=== PATIENT | male | born 1985 | race American Indian/Alaskan Native ===

== ENCOUNTER 2018-09-20 20:59 | Emergency (ER) | payer SELFPAY ==
[2018-09-20] MEDS ORDERED: NA CHLORIDE 0.9% 1,000 ML ONE (21:31)
[2018-09-20 21:48] LABS: Absolute Monocytes 1.2 K/uL (0.1-1.3); Absolute Neutrophil 5.9 K/uL (1.8-8.0); Basophils % 0.8 % (0-1.3); Eosinophils % 1.3 % (0-4.4); Hematocrit 50.5 % (39.6-49.0); Lymphocytes % 35.1 % (15.3-44.8); MCH 29.4 pg (27.0-35.0); MCV 86.3 fL (80-100); MPV 7.6 fL (7.6-11.3); Monocytes % 10.7 % (3.3-12.3); RBC Red Blood Cell Count 5.85 M/uL (4.33-5.43)
[2018-09-20 21:56] LABS: Protime INR 1.1
[2018-09-20 21:58] LABS: Barbiturates NEGATIVE (NEGATIVE); Benzodiazepines NEGATIVE (NEGATIVE); Cocaine NEGATIVE (NEGATIVE); METHAMPHETAM NEGATIVE (NEGATIVE); Methadone NEGATIVE (NEGATIVE); Opiates NEGATIVE (NEGATIVE); Phencyclidine NEGATIVE (NEGATIVE); THC Cannibis NEGATIVE (NEGATIVE)
[2018-09-20 22:14] LABS: ALT/SGPT 34 U/L (12-78); AST/SGOT 19 U/L (15-37); Albumin 4.3 g/dL (3.4-5.0); Alkaline Phosphatase 54 U/L (45-117); BUN Blood Urea Nitrogen 13 mg/dL (7-18); Bicarbonate 25 mmol/L (21-32); Bilirubin Direct 0.2 mg/dL (0-0.2); Bilirubin Total 0.3 mg/dL (0.2-1.0); Glucose Level 118 mg/dL (74-106); Potassium 3.1 mmol/L (3.5-5.1); Protein, Total 8.4 g/dL (6.4-8.2); Sodium Level 140 mmol/L (136-145)
[2018-09-20 22:30] LABS: Urine Blood TRACE (NEG); Urine Glucose NEGATIVE (NEG); Urine Protein 2+ (NEG); Urine Specific Gravity 1.025 (1.005-1.030); Urine pH 5.5 (5.0-7.0)
[2018-09-20] MEDS ORDERED: CALCIUM GLUCONATE 1 GM IVPB 1 GM/50 ML BAG IV ONE (23:19)
[2018-09-21] MEDS ORDERED: CALCIUM GLUCONATE 1 GM IVPB 1 GM/50 ML BAG IV ONE (00:15)
--- NOTE | 2018-09-21 00:23 | EDPHYS ---
Physician Documentation [facility] Name: Stewart Cardenas Age: 33 yrs Sex: Male : 1985 Arrival Date: 09/20/2018 Time: 21:01 Bed 3 Private MD: ED Physician Rafy Steen HPI: 09/21 00:12 This 33 yrs old Other Male presents to ER via EMS with complaints of Suicidal Ideation. 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 Onset: The symptoms/episode began/occurred acutely, 1 hour(s) ago. Severity of symptoms: At their worst the symptoms were mild in the emergency department the symptoms are unchanged. Historical: - Allergies: 09/20 21:12 No Known Allergies; ak1 - Home Meds: 21:12 None [Active]; ak1 - PMHx: 21:12 None; ak1 - PSHx: 21:12 None; ak1 - Immunization history:: Adult Immunizations unknown. - Social history:: Smoking status: Patient uses tobacco products, denies chronic smoking, but will smoke occasionally. - Ebola Screening: : No symptoms or risks identified at this time. ROS: 09/21 00:12 All other systems are negative. gs Exam: 00:12 Head/Face: Normocephalic, atraumatic. Eyes: Pupils equal round and reactive to light, gs extra-ocular motions intact. Lids and lashes normal. Conjunctiva and sclera are non-icteric and not injected. Cornea within normal limits. Periorbital areas with no swelling, redness, or edema. ENT: Nares patent. No nasal discharge, no septal abnormalities noted. Tympanic membranes are normal and external auditory canals are clear. Oropharynx with no redness, swelling, or masses, exudates, or evidence of obstruction, uvula midline. Mucous membranes moist. Neck: Trachea midline, no thyromegaly or masses palpated, and no cervical lymphadenopathy. Supple, full range of motion without nuchal rigidity, or vertebral point tenderness. No Meningismus. Chest/axilla: Normal chest wall appearance and motion. Nontender with no deformity. No lesions are appreciated. 00:12 Respiratory: Lungs have equal breath sounds bilaterally, clear to auscultation and percussion. No rales, rhonchi or wheezes noted. No increased work of breathing, no retractions or nasal flaring. Abdomen/GI: Soft, non-tender, with normal bowel sounds. No distension or tympany. No guarding or rebound. No evidence of tenderness throughout. Back: No spinal tenderness. No costovertebral tenderness. Full range of motion. Skin: Warm, dry with normal turgor. Normal color with no rashes, no lesions, and no evidence of cellulitis. MS/ Extremity: Pulses equal, no cyanosis. Neurovascular intact. Full, normal range of motion. Neuro: Awake and alert, GCS 15, oriented to person, place, time, and situation. Cranial nerves II-XII grossly intact. Motor strength 5/5 in all extremities. Sensory grossly intact. Cerebellar exam normal. Normal gait. 00:12 Constitutional: The patient appears alert, awake. 00:12 Cardiovascular: Rate: tachycardic, Rhythm: regular, Pulses: no pulse deficits are appreciated, Heart sounds: normal. 00:12 ECG was reviewed by the Attending Physician. 00:12 Respiratory: Exam negative for acute changes, Respirations: normal, Breath sounds: are clear throughout. 00:17 ECG was reviewed by the Attending Physician. Vital Signs: 09/20 21:12 BP 110 / 46; Pulse 123; Resp 16; Temp 98.4(TE); Pulse Ox 98% on R/A; Weight 97.07 kg ak1 (R); Height 6 ft. 0 in. (182.88 cm) (R); Pain 0/10; 21:35 BP 103 / 58; Pulse 113; Resp 14; Pulse Ox 97% on R/A; ak1 22:33 BP 101 / 59; Pulse 110; Resp 10; Pulse Ox 94% on R/A; ak1 23:36 BP 97 / 56; Pulse 105; Resp 14; Pulse Ox 94% on R/A; ak1 09/21 00:25 BP 90 / 52; Pulse 95; Resp 20; Temp 98.6; Pulse Ox 96% on 2 lpm NC; Pain 0/10; ak1 09/20 21:12 Body Mass Index 29.02 (97.07 kg, 182.88 cm) ak1 MDM: 09/20 21:18 Patient medically screened. 09/21 00:12 Data reviewed: vital signs, nurses notes. Response to treatment: the patient's symptoms gs have mildly improved after treatment, patient is well hydrated. and as a result, I will transfer. 00:17 ED course: attempt lavage pt didn't tolerate so terminated, no charcoal no direct gs benefit concern for aspiration if deteriorated and needed intubation, spoke to research geologist dr ozzy kelly with plan suggests calcium, and insulin drip if deteriorates says high dose insulin and dextrose required unable to provide that service no pharmacist to make essentially a hyperal solution. 09/20 21:17 Order name: Acetaminophen [facility] 09/20 21:17 Order name: Basic Metabolic Panel [facility] 09/20 21:17 Order name: CBC with Diff [facility] 09/20 21:17 Order name: ETOH Level [facility] 09/20 21:17 Order name: Hepatic Function [facility] 09/20 21:17 Order name: PT-INR [facility] 09/20 21:17 Order name: Ptt, Activated [facility] 09/20 21:17 Order name: Salicylate [facility] 09/20 21:17 Order name: Urine Drug Screen [facility] 09/20 21:17 Order name: Acetaminophen 09/20 21:17 Order name: Basic Metabolic Panel 09/20 21:17 Order name: CBC with Diff 09/20 21:17 Order name: ETOH Level 09/20 21:17 Order name: Hepatic Function 09/20 21:17 Order name: PT-INR 09/20 21:17 Order name: Salicylate 09/20 21:17 Order name: Urine Drug Screen 09/20 21:26 Order name: Urine Dipstick--Ancillary (enter results) [facility] 09/20 21:50 Order name: CBC with Automated Diff; Complete Time: 22:45 [facility] 09/20 21:58 Order name: Urine Drug Screen; Complete Time: 22:45 EDMS 09/20 22:08 Order name: Protime (+INR); Complete Time: 22:45 EDMS 09/20 22:08 Order name: PTT, Activated Partial Thromb; Complete Time: 22:45 EDMS 09/20 22:15 Order name: Basic Metabolic Panel; Complete Time: 22:45 EDMS 09/20 22:15 Order name: Liver (Hepatic) Function; Complete Time: 22:45 [facility] 09/20 22:15 Order name: Acetaminophen Level; Complete Time: 22:45 [facility] 09/20 22:15 Order name: Alcohol Serum/Plasma; Complete Time: 22:45 [facility] 09/20 22:23 Order name: Salicylates Level; Complete Time: 22:45 [facility] 09/20 22:30 Order name: Urine Dipstick-Ancillary; Complete Time: 22:45 [facility] 09/20 21:17 Order name: EKG; Complete Time: 22:15 [facility] 09/20 21:17 Order name: EKG - Nurse/Tech; Complete Time: 21:35 [facility] 09/20 21:17 Order name: IV Saline Lock; Complete Time: 21:17 [facility] 09/20 21:17 Order name: Labs collected and sent; Complete Time: 21:17 [facility] 09/20 21:17 Order name: Urine Dipstick-Ancillary (obtain specimen); Complete Time: 21:17 [facility] 09/20 21:17 Order name: EKG; Complete Time: 22:16 09/20 21:17 Order name: EKG - Nurse/Tech; Complete Time: 21:18 09/20 21:17 Order name: IV Saline Lock; Complete Time: 21:35 09/20 21:17 Order name: Labs collected and sent; Complete Time: 21:35 09/20 21:17 Order name: Urine Dipstick-Ancillary (obtain specimen); Complete Time: 21:25 gs EC:17 Rate is 120 beats/min. Rhythm is regular. MD interval is normal. QRS interval is gs normal. T waves are Flattened. Clinical impression: Abnormal EKG without significant change. Interpreted by me. Administered Medications: 09/20 21:34 Drug: NS 0.9% 1000 ml Route: IV; Rate: 125 ml/hr; Site: right forearm; [facility] 09/21 00:22 Follow up: Rate change 175 ml/hr; IV Status: order to change rate to 175mL/hr [facility] 00:23 Follow up: IV Status: Infusion continued upon transfer [facility] 09/20 23:21 Drug: NS 0.9% 1000 ml Route: IV; Rate: 1 bolus; Site: right forearm; [facility] 09/21 00:14 Follow up: IV Status: Completed infusion [facility] 09/20 23:24 Drug: Calcium Gluconate 1 grams Route: IVPB; Infused Over: 60 mins; Site: right forearm;ak1 09/21 00:21 Follow up: IV Status: Completed infusion ak1 00:21 Drug: Calcium Gluconate 1 grams Route: IVPB; Infused Over: 60 mins; Site: right forearm;ak1 00:23 Follow up: IV Status: Infusion continued upon transfer ak1 Disposition: 09/21/18 00:21 Transfer ordered to [facility]. Diagnosis is Poisoning by calcium-channel blockers, intentional self-harm. - Reason for transfer: Higher level of care. - Accepting physician is ines. - Condition is Stable. - Problem is new. - Symptoms have improved. Signatures: Dispatcher [employer] Radha Greenfield RN RN ak1 Rafy Steen MD MD Corrections: (The following items were deleted from the chart) 00:44 00:21 09/21/2018 00:21 Transfer ordered to [facility]. Diagnosis is ak1 Poisoning by calcium-channel blockers, intentional self-harm. Reason for transfer: Higher level of care. Accepting physician is ines. Condition is Stable. Problem is new. Symptoms have improved. gs
--- NOTE | 2018-09-21 00:23 | ER ---
Nurse's Notes [facility] Name: Stewart Cardenas Age: 33 yrs Sex: Male : 1985 Arrival Date: 09/20/2018 Time: 21:01 Bed 3 Private MD: Diagnosis: Poisoning by calcium-channel blockers, intentional self-harm Presentation: 09/20 21:10 Presenting complaint: Patient states: took unknown amount amlodipine and HCTZ at 2000. ak1 pt stated he has legal issues and wanted to drop his blood pressure to not wake up. pt cooperative and calm. pt denies history of previous attempts. Transition of care: patient was not received from another setting of care. Onset of symptoms was September 20, 2018. Risk Assessment: Do you want to hurt yourself or someone else? Patient reports desire/thoughts of hurting themselves or someone else. Provider notified. Initial Sepsis Screen: Does the patient meet any 2 criteria? No. Patient's initial sepsis screen is negative. Does the patient have a suspected source of infection? No. Patient's initial sepsis screen is negative. Care prior to arrival: None. 21:10 Method Of Arrival: EMS: [facility] ak1 21:10 Acuity: NATHEN 2 ak1 Triage Assessment: 21:12 General: Appears in no apparent distress. Behavior is calm, cooperative. Pain: Denies ak1 pain. EENT: No signs and/or symptoms were reported regarding the EENT system. Neuro: Level of Consciousness is awake, alert, obeys commands, Oriented to person, place, time, situation, Appropriate for age Wild Animal Caretaker are equal bilaterally Moves all extremities. Gait is steady, Speech is normal, Facial symmetry appears normal, Pupils are PERRLA. Cardiovascular: Rhythm is sinus tachycardia. Respiratory: No deficits noted. GI: No signs and/or symptoms were reported involving the gastrointestinal system. : No signs and/or symptoms were reported regarding the genitourinary system. Derm: No signs and/or symptoms reported regarding the dermatologic system. Musculoskeletal: No signs and/or symptoms reported regarding the musculoskeletal system. Historical: - Allergies: 21:12 No Known Allergies; ak1 - Home Meds: 21:12 None [Active]; ak1 - PMHx: 21:12 None; ak1 - PSHx: 21:12 None; ak1 - Immunization history:: Adult Immunizations unknown. - Social history:: Smoking status: Patient uses tobacco products, denies chronic smoking, but will smoke occasionally. - Ebola Screening: : No symptoms or risks identified at this time. Screenin:15 Abuse screen: Denies threats or abuse. Denies injuries from another. Nutritional ak1 screening: No deficits noted. Tuberculosis screening: No symptoms or risk factors identified. Fall Risk None identified. Assessment: 21:16 Reassessment: Patient appears in no apparent distress at this time. No changes from ak1 previously documented assessment. see triage assessment. 21:31 Reassessment: Emi with [place] poison control contacted, . ak1 Charcoal with sorbitol 50grams recommended. watch for tachycardia, sever hypotension, drowsy, N/V. Gastric lavage was not recommended, provider notified of poison control recommendations. 22:33 Reassessment: Patient appears in no apparent distress at this time. No changes from ak1 previously documented assessment. Patient and/or family updated on plan of care and expected duration. Pain level reassessed. Patient is alert, oriented x 3, equal unlabored respirations, skin warm/dry/pink. 22:40 Reassessment: pt placed on 2L NC. pt stated he has sleep apnea. ak1 23:35 Reassessment: Patient appears in no apparent distress at this time. No changes from ak1 previously documented assessment. Patient and/or family updated on plan of care and expected duration. Pain level reassessed. Patient is alert, oriented x 3, equal unlabored respirations, skin warm/dry/pink. pt informed of need for transfer. pt remains A\T\OX4 but sleepy. Vital Signs: 21:12 BP 110 / 46; Pulse 123; Resp 16; Temp 98.4(TE); Pulse Ox 98% on R/A; Weight 97.07 kg ak1 (R); Height 6 ft. 0 in. (182.88 cm) (R); Pain 0/10; 21:35 BP 103 / 58; Pulse 113; Resp 14; Pulse Ox 97% on R/A; ak1 22:33 BP 101 / 59; Pulse 110; Resp 10; Pulse Ox 94% on R/A; ak1 23:36 BP 97 / 56; Pulse 105; Resp 14; Pulse Ox 94% on R/A; ak1 09/21 00:25 BP 90 / 52; Pulse 95; Resp 20; Temp 98.6; Pulse Ox 96% on 2 lpm NC; Pain 0/10; ak1 09/20 21:12 Body Mass Index 29.02 (97.07 kg, 182.88 cm) ak1 ED Course: 09/20 21:00 Safety Checks: Personal items have been removed. The door is open or patient has been ak1 placed in a hallway bed/chair. There are no family/friend visitors at this time Sitter present at this time. 21:01 Patient arrived in ED. al2 21:03 Rafy Steen MD is Attending Physician. gs 21:09 Radha Hernández, RN is Primary Nurse. ak1 21:12 Triage completed. ak1 21:12 Arm band placed on Patient placed in an exam room, on a stretcher, on rn cardiac rehab, ak1 on pulse oximetry. EKG completed in triage. Results shown to MD. 21:15 Safety Checks: Personal items have been removed. The door is open or patient has been ak1 placed in a hallway bed/chair. There are no family/friend visitors at this time Sitter present at this time. 21:15 Patient has correct armband on for positive identification. Placed in gown. Bed in low ak1 position. Call light in reach. Side rails up X2. alarm security or surveillance monitor on. Pulse ox on. NIBP on. Warm blanket given. 21:15 Initial lab(s) drawn, by me, sent to lab. Urine collected: clean catch specimen, EKG ak1 done, by ED staff, reviewed by Rafy Steen MD. Inserted saline lock: 20 gauge in right forearm, using aseptic technique. Blood collected. 21:29 Safety checks: Items removed: yes. Door open/sign placed on door: yes. Family/friend oe present: no. Sitter present: Yes. 21:30 Safety Checks: Personal items have been removed. The door is open or patient has been ak1 placed in a hallway bed/chair. There are no family/friend visitors at this time Sitter present at this time. 21:40 Pillow given. oe 21:45 Safety Checks: Personal items have been removed. The door is open or patient has been ak1 placed in a hallway bed/chair. There are no family/friend visitors at this time Sitter present at this time. 21:45 Safety checks: Items removed: yes. Door open/sign placed on door: yes. Family/friend oe present: no. Sitter present: Yes. 22:00 Safety Checks: Personal items have been removed. The door is open or patient has been ak1 placed in a hallway bed/chair. There are no family/friend visitors at this time Sitter present at this time. 22:00 Safety checks: Items removed: yes. Door open/sign placed on door: yes. Family/friend oe present: no. Sitter present: Yes. 22:15 Safety Checks: Personal items have been removed. The door is open or patient has been ak1 placed in a hallway bed/chair. There are no family/friend visitors at this time Sitter present at this time. 22:15 Safety checks: Items removed: yes. Door open/sign placed on door: yes. Family/friend oe present: no. Sitter present: Yes. 22:30 Safety Checks: Personal items have been removed. The door is open or patient has been ak1 placed in a hallway bed/chair. There are no family/friend visitors at this time Sitter present at this time. 22:30 Safety checks: Items removed: yes. Door open/sign placed on door: yes. Family/friend oe present: no. Sitter present: Yes. 22:45 Safety Checks: Personal items have been removed. The door is open or patient has been ak1 placed in a hallway bed/chair. There are no family/friend visitors at this time Sitter present at this time. 22:45 Safety checks: Items removed: yes. Door open/sign placed on door: yes. Family/friend oe present: no. Sitter present: Yes. 23:00 Safety Checks: Personal items have been removed. The door is open or patient has been ak1 placed in a hallway bed/chair. There are no family/friend visitors at this time Sitter present at this time. 23:00 Safety checks: Items removed: yes. Door open/sign placed on door: yes. Family/friend oe present: no. Sitter present: Yes. 23:15 Safety Checks: Personal items have been removed. The door is open or patient has been ak1 placed in a hallway bed/chair. There are no family/friend visitors at this time Sitter present at this time. 23:15 Safety checks: Items removed: yes. Door open/sign placed on door: yes. Family/friend oe present: no. Sitter present: Yes. 23:30 Safety Checks: Personal items have been removed. The door is open or patient has been ak1 placed in a hallway bed/chair. There are no family/friend visitors at this time Sitter present at this time. 23:30 Safety checks: Items removed: yes. Door open/sign placed on door: yes. Family/friend oe present: no. Sitter present: Yes. 23:45 Safety Checks: Personal items have been removed. The door is open or patient has been ak1 placed in a hallway bed/chair. There are no family/friend visitors at this time Sitter present at this time. 23:45 Safety checks: Items removed: yes. Door open/sign placed on door: yes. Family/friend oe present: no. Sitter present: Yes. 09/21 00:00 Safety Checks: Personal items have been removed. The door is open or patient has been ak1 placed in a hallway bed/chair. There are no family/friend visitors at this time Sitter present at this time. 00:00 Safety checks: Items removed: yes. Door open/sign placed on door: no. Family/friend oe present: no. Sitter present: Yes. 00:15 Safety Checks: Personal items have been removed. The door is open or patient has been ak1 placed in a hallway bed/chair. There are no family/friend visitors at this time Sitter present at this time. 00:15 Safety checks: Items removed: yes. Door open/sign placed on door: yes. Family/friend oe present: no. Sitter present: Yes. 00:23 No provider procedures requiring assistance completed. Patient transferred, IV remains ak1 in place. 00:30 Safety checks: Items removed: yes. Door open/sign placed on door: yes. Family/friend oe present: no. Sitter present: Yes. Administered Medications: 09/20 21:34 Drug: NS 0.9% 1000 ml Route: IV; Rate: 125 ml/hr; Site: right forearm; ak1 09/21 00:22 Follow up: Rate change 175 ml/hr; IV Status: order to change rate to 175mL/hr ak1 00:23 Follow up: IV Status: Infusion continued upon transfer ak1 09/20 23:21 Drug: NS 0.9% 1000 ml Route: IV; Rate: 1 bolus; Site: right forearm; ak1 09/21 00:14 Follow up: IV Status: Completed infusion ak1 09/20 23:24 Drug: Calcium Gluconate 1 grams Route: IVPB; Infused Over: 60 mins; Site: right forearm;ak1 09/21 00:21 Follow up: IV Status: Completed infusion ak1 00:21 Drug: Calcium Gluconate 1 grams Route: IVPB; Infused Over: 60 mins; Site: right forearm;ak1 00:23 Follow up: IV Status: Infusion continued upon transfer ak1 Outcome: 00:21 ER care complete, transfer ordered by . 00:23 Transferred by ground EMS to [facility], Transfer form completed. ak1 X-rays sent w/ patient. Note: report given to Ky pandey for . 00:23 Condition: stable 00:23 Instructed on the need for transfer. 00:44 Patient left the ED. ak1 Signatures: Radha Hernández, RN RN ak1 Joon Barclay Gregory, MD MD gs Love, Khushbu rodriges
[2018-09-21] MEDS ORDERED: NA CHLORIDE 0.9% 1,000 ML ONE (00:26)
--- NOTE | 2018-09-21 08:28 | EKG ---
Test Date: 2018-09-20 Test Time: 21:06:23 Strike Operations Officer: KRISTAN MEASUREMENT RESULTS: Intervals: Rate: 120 VT: 134 QRSD: 88 QT: 312 QTc: 440 [place]: P: 59 VT: 134 QRS: 76 T: 11 INTERPRETIVE STATEMENTS: Sinus tachycardia Nonspecific T wave abnormality Abnormal ECG No previous ECG available for comparison Electronically Signed On 09-21-18 08:28:00 MANAGER DATABASE by Segun Seymour
== END 2018-09-21 00:44 | disposition short-term general hospital (02) ==
LOC: ER 20:59
DX: T46.1X2A Poisoning by calcium-channel blockers, intentional self-harm, initial encounter (principal); R00.0 Tachycardia, unspecified; R94.31 Abnormal electrocardiogram [ECG] [EKG]; F17.200 Nicotine dependence, unspecified, uncomplicated
CPT/HCPCS: 36415; 80048; 80076; 80307; 80320; 80329; 81003; 85025; 85610; 85730; 93005; 96361; 96365; 99285; J0610; J7030